=== PATIENT | female | born 1980 | race Caucasian/White ===

== ENCOUNTER 2020-07-26 13:36 | Emergency (ER) | payer BC, SELFPAY ==
[2020-07-26 13:44] VITALS: BP 124/81; PULSE 84; RESP 16; TEMP 36.6; O2SAT 100
--- NOTE | 2020-07-26 13:45 | ED.URI ---
HPI - URI/Sore Throat General Chief Complaint: Upper Respiratory Infection Stated Complaint: sinus congestion Source: patient and RN notes reviewed Limitations: no limitations History of Present Illness HPI Narrative: The patient , rare smoker/rare drinker, presents with sinus headache and congestion. Patient states she has been seen in the far past by ENT for sinusitis and had a DNS repair, as well as polyp removal. She now has a least a 1 week history of frontal facial pain and headache, associated with congestion and postnasal drip--that she attributes to seasonal allergies. She had 2 prior negative Covid test; no fever, cough, loss of taste/smell, CP, wheezing, S OB. Symptoms are mild to moderate and better sleeping upright. Related Data Home Medications Medication Instructions Recorded Confirmed atorvastatin 20 mg PO DAILY 07/26/20 07/26/20 Allergies Allergy/AdvReac Type Severity Reaction Status Date / Time No Known Allergies Allergy Mild Verified 07/26/20 13:42 Review of Systems Review of Systems: Narrative: General/Constitutional: No weight loss,fever Eyes: N0: Redness,discharge Ears/Nose/Throat: No: Epistaxis,ear discharge Respiratory: Denies: Hemoptysis Gastrointestinal: No Vomiting, Bleeding-rectal Skin: No Lumps, eruption Neurologic: No Focal Weakness,Sz Hematologic: Denies: Petechiae/Purpura Psychiatric: No: Suicida ideationl All Other Systems: Reviewed and Negative PMFSH Comments At time of signature, agree with nursing past medical, surgical, social and family history. There is no relevant family history pertinent to the presenting complaint Exam Narrative: Exam Narrative: General Appearance: Well appearing, Well nourished EYE: PERRLA, Conjunctiva clear Ears: Auditory canal normal, TM normal Nose: Rhinorrhea, Mucousal erythema Mouth/Throat: MM moist, Uvula midline, Pharyngeal erythema Neck: Supple, No adenopathy Respiratory: No respiratory distress, Breath sounds equal, Clear to auscultation Cardiovascular: No JVD Musculoskeletal: Non tender, Normal strength Skin: Warm, Dry Neurological: A&O x3, CN II-XII intact Psychiatric: Normal mood, Normal affect Course Vital Signs Vital signs: Vital Signs Temperature 98 F 07/26/20 13:44 Pulse Rate 84 07/26/20 13:44 Respiratory Rate 16 07/26/20 13:44 Blood Pressure 124/81 07/26/20 13:44 Pulse Oximetry 100 07/26/20 13:44 Temperature 98 F 07/26/20 13:44 Pulse Rate 84 07/26/20 13:44 Respiratory Rate 16 07/26/20 13:44 Blood Pressure 124/81 07/26/20 13:44 Pulse Oximetry 100 07/26/20 13:44 Discharge Plan Discharge Clinical Impression: Sinus headache Patient Disposition: Home, Self-Care Condition: Stable Instructions: Antibiotic Form, Sinusitis (ED) Prescriptions: New cefdinir 300 mg capsule 300 mg PO Q12H Qty: 14 RF: 0 azelastine 137 mcg (0.1 %) aerosol,spray 137 mcg intranasal Q12H Qty: 30 RF: 0 montelukast [Singulair] 10 mg tablet 10 mg PO HS Qty: 20 RF: 2 tramadol 50 mg tablet 50 mg PO TID PRN (Reason: pain) Qty: 10 RF: 0 atorvastatin 20 mg tablet 20 mg PO HS Qty: 30 RF: 2 No Action atorvastatin 20 mg Tablet 20 mg PO DAILY RF: 0 Follow-up/Referrals: Dede Cool MD [Other]
== END 2020-07-26 14:40 | disposition home or self-care (01) ==
PROVIDERS: Emergency Provider Emergency Medicine
DX: R51.9 Headache, unspecified (principal); Z72.0 Tobacco use
CPT/HCPCS: 99213; G0463

== ENCOUNTER 2024-12-12 10:07 | Outpatient (CLI) | payer BC, SELFPAY ==
--- OUTSIDE RECORDS SUMMARY | 2024-12-12 10:17 | XMS_ITS | Clinical Summary ---
Author Organization [facility] Address [address] [place] [address] Phone Care Team Providers Care Fitness Professional Name Role Phone Dede Cool MD Primary Care Provider [phone] Allergies No known active allergies Medications cholecalcifero l, vitamin D3, (VITAMIN D3) 5,000 unitIndication s:Vitamin D deficiency Take 1 Tablet (5,000 Units) by mouth see administration instructions three times a week. 1 Tablet 1 7 Active amphetamine-de xtroamphetamin e (Adderall XR) 15 mg Extended Release 24 hour capsule Take 15 mg by mouth 2 times daily. 1 Active atorvastatin (LIPITOR) 40 mg tablet Take 40 mg by mouth daily. Active FLUoxetine (PROzac) 20 mg tablet Take 20 mg by mouth daily. Active Active Problems Problem Noted Date Diagnosed Date Family history of early CAD 06/27/2016 Overview (06/27/2016): Family History Problem Relation Age of Onset Heart Disease Father CABG at 37 Tobacco use 06/04/2016 rLTCS 2/14 07/08/2012 Vitamin D deficiency 09/21/2009 Familial hypercholesteremia 09/21/2009 ADILSON (generalized anxiety disorder) 09/21/2009 Resolved Problems Problem Noted Date Diagnosed Date Resolved Date Hyperlipidemia 09/21/2009 09/21/2009 Immunizations Immunization Administration Dates Next Due (ADACEL/BOOSTRIX)(10 YR UP) TDAP VACCINE, 0.5ML, IM 11/12/2007 Influenza Seasonal Unspecified Formulation IM ,03/25/2012 Influenza Vaccine Split 3+ Yrs IM 06/04/2016 Rho (D) IMMUNE GLOBULIN 1,500 UNIT(300 MCG) INJE CTION 07/09/2012 Family History Medical History Relation Name Comments Heart Disease Father CABG at 37 Hypertension Father Kidney Disease Father Stroke Father Healthy Mother Relation Name Status Comments Father Mother Alive Social History Tobacco Use Types Packs/Day Years Used Date Smoking Tobacco: Former Cigarettes Smokeless Tobacco: Never Comments:quit 5 months ago Alcohol Use Standard Drinks/Week Comments Yes 1 (1 standard drink = 0.6 oz pur e alcohol) Comments No Sex and Gender Information Value Date Recorded Sex Assigned at Not on file 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 Gender Identity Not on file Sexual Orientation Not on file Occupation Industry Job Start Date Job End Date Not on file Not on file Not on file Not on file Last Filed Vital Signs Vital Sign Reading Time Taken Comments Blood Pressure 144/97 12/26/2020 3:27 PM CDT Pulse 91 12/26/2020 3:27 PM CDT Temperature 36.7 C (98.1 F) 06/25/2016 3:39 PM FISHING ROD ASSEMBLER Respiratory Rate 16 06/25/2016 3:39 PM FISHING ROD ASSEMBLER Oxygen Saturation 98% 06/25/2016 3:39 PM FISHING ROD ASSEMBLER Inhaled Oxygen Concentration - - Weight 91.6 kg (202 lb) 12/05/2020 3:29 PM CDT Height 172.7 cm (5' 8) 12/26/2020 3:27 PM CDT Body Mass Index 30.71 12/05/2020 3:29 PM CDT Plan of Treatment Health Maintenance Due Date Last Done Comments HPV VACCINES (1 - 3-dose series) 1996 HEPATITIS B VACCINES (1 of 3 - 19+ 3-dose series) 2000 DTAP/TDAP/TD VACCINES (2 - T d or Tdap) 11/11/2017 11/12/2007 BREAST CANCER SCREENING 2021 PAP SMEAR 12/06/2023 12/05/2020, 03/25, 12/24/2011, Additional history exists Preventative Visit- Commercial 05/25/2024 12/05/2020 , 09/21/2009 INFLUENZA VACCINE (#1) 2024 7, 02/22/2013, 03/25/2012 CERVICAL CANCER SCREENING 12/05/2025 HPV/Cotest (21-29) 12/05/2025 12/05/2020 HPV/Cotest (30-65) 12/05/2025 12/05/2020 Procedures Procedure Name Priority Date/Time Associated Diagnosis Comments CERV/VAG CYTO SCREEN PAP W/HPV Routine 12/05/2020 4:27 PM CDT Encounter for gynecological examination without abnormal finding from Last 3 Months or Most Recently Relevant to Health Maintenance Results * CERV/VAG CYTO SCREEN PAP W/HPV (12/05/2020 4:27 PM CDT) CLINICAL INFORMATION [facility] Comment:Information not prov ided LAST MENSTRUAL PERIOD [facility] Comment:INFORMATION NOT PROV IDED PREV PAP: [facility] Comment:INFORMATION NOT PROV IDED PREV BX: [facility] Comment:INFORMATION NOT PROV IDED SOURCE [facility] Comment:Endocervix ADEQUACY: [facility] Comment: Satisfactory for evaluation. Endocervical/transformation zone component absent. Age and/or menstrual status not provided PAP INTERP [facility] Comment:Negative for intraep ithelial lesion or malignancy. COMMENT [facility] Comment: This Pap test has been evaluated with computer assisted technology. HEADER MACHINE OPERATOR: [facility] Comment: AIXA HERNANDEZ(ASCP) CT screening location: [place] [address] [place] [address] SEE NOTE [facility] Comment: EXPLANATORY NOTE: The Pap is a screening test for cervical cancer. It is not a diagnostic test and is subject to false negative and false positive results. It is most reliable when a satisfactory sample, regularly obtained, is submitted with relevant clinical findings and history, and when the Pap result is evaluated along with historic and current clinical information. HPV E6/E7 Not Detected Not Detected [facility] Comment: Methodology: Rail Gang Supervisor-Mediated Amplification This assay detects E6/E7 viral messenger RNA (mRNA) from 14 high-risk HPV types (16,18,31,33,35,39,45,51,52,56,58,59,66,68). The analytical performance characteristics of this assay have been determined by [facility]. The modifications have not been cleared or approved by the FDA. This assay has been validated pursuant to the CLIA regulations and is used for clinical purposes. For additional information, please refer to http://education.[employer]eenoh/faq/YWI141b8 (This link if provided for information/ educational purposes only.) [facility]formed [facility] [address] [address] Piyush Nunez D.O., MPH SL Genital SWAB OF ENDOCERVIX / Unknown 12/05/2020 4:27 PM CDT 12/05/2020 11:50 PM CDT us Garcia Montiel MD PATHOLOGY/CYTOLOGY ORD ERABLES Final Result [facility] [address] [place] [address] from Last 3 Months or Most Recently Relevant to Health Maintenance Insurance [facility] PREFERR[facility] Advance Directives For more information, please contact: [phone] * Full Code (Latest Code Status on File) Date Activated Date Inactivated Comments 07/08/2012 10:55 PM 07/12/2012 2:24 PM * Full Code Date Activated Date Inactivated Comments 07/08/2012 11:17 AM 07/08/2012 10:55 PM Care Teams Fitness Professional Relationship Specialty Start Date End Date Dede Cool MD [facility] - General 06/28/09
--- OUTSIDE RECORDS SUMMARY | 2024-12-12 10:17 | XMS_ITS | Encounter Summary ---
Author Organization [employer] Address [address] [place] [address] Care Team Providers Care Field Engineer Name Role Phone Dede Cool MD Primary Care Provider [phone] Encounter Details Date Type Department Care Team (Late st Contact Info) Description 05/19/2007 Emergency [facility] [place], Authorized P NO ADDRESS ON FILE Karen Chiang MD NO ADDRESS ON FILE Other Current Maternal Conditions Classifiable Elsewhere, Antepartum; Unspecified Chest Pain; Hypopotassemia; Family History of Ischemic Heart Disease; Personal History of Tobacco Use, Presenting Hazards to Health Social History Tobacco Use Types Packs/Day Years Used Date Smoking Tobacco: Never Assessed Comments Unknown Sex and Gender Information Value Date Recorded Sex Assigned at Not on file 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 Gender Identity Not on file Sexual Orientation Not on file documented as of this encounter Plan of Treatment Not on file documented as of this encounter Procedures Procedure Name Priority Date/Time Associated Diagnosis Comments TROPONIN (W/REFLEX CKMB/CK) Routine 05/19/2007 7:29 AM SENIOR ENGINEERING ASSOCIATE CBC WITH DIFFERENTIAL Routine 05/19/2007 7:29 AM SENIOR ENGINEERING ASSOCIATE CBC WITH DIFFERENTIAL Routine 05/19/2007 7:29 AM SENIOR ENGINEERING ASSOCIATE COMPREHENSIVE METABOLIC PANEL Routine 05/19/2007 7:29 AM SENIOR ENGINEERING ASSOCIATE documented in this encounter Results * CBC WITH DIFFERENTIAL (05/19/2007 7:29 AM SENIOR ENGINEERING ASSOCIATE) [facility] NEUTROPHILS 68 45 - 70 % INTERFAC E SYSTEM LYMPHOCYTES 24 16 - 45 % INTERFAC E SYSTEM MONOCYTES 6 3 - 13 % INTERFACE SYSTEM EOSINOPHILS 2 0 - 7 % INTERFAC E SYSTEM BASOPHILS 0 0 - 2 % INTERFACE SYSTEM NEUTROPHIL ABSOLUTE 6.52 1.90 - 7.00 K/uL INTERFACE SYSTEM LYMPHOCYTE ABSOLUTE 2.32 0.70 - 4.50 K/uL INTERFACE SYSTEM MONOCYTE ABSOLUTE 0.62 0.10 - 1.30 K/uL INTERFACE SYSTEM EOSINOPHIL ABSOLUTE 0.14 0.00 - 0.70 K/uL INTERFACE SYSTEM BASOPHILS ABSOLUTE 0.03 0.00 - 0.20 K/uL INTERFACE SYSTEM 05/19/2007 7:29 AM SENIOR ENGINEERING ASSOCIATE Karen Chiang MD HEMATOLOGY ORDERABLES Edited Performing Organization Address [facility] de Phone Number INTERFACE SYSTEM Refer to clinic/hospital department * (ABNORMAL) CBC WITH DIFFERENTIAL (05/19/2007 7:29 AM SENIOR ENGINEERING ASSOCIATE) [facility] WBC 9.6 4.0 - 9.8 K/uL INTERFACE SYSTEM RBC 3.75(L) 3.90 - 4.90 M/uL INTERFACE SYSTEM HEMOGLOBIN 11.4(L) 11.8 - 14.8 g/dL INTERFACE SYSTEM HEMATOCRIT 32.8(L) 35.5 - 44.0 % INTERFACE SYSTEM MCV 87.5 82.0 - 99.0 fL INTERFACE SYSTEM MCH 30.4 27.2 - 32.6 pg INTERFACE SYSTEM MCHC 34.8 31.5 - 35.5 % INTERFACE SYSTEM RDW 12.9 11.5 - 14.5 % INTERFACE SYSTEM RDW-STDEV 41.2 37.1 - 48.7 fL INTERFACE SYSTEM PLATELETS 164 140 - 350 K/uL INTERFACE SYSTEM MPV 9.3 9.3 - 12.4 fL INTERFACE SYSTEM 05/19/2007 7:29 AM SENIOR ENGINEERING ASSOCIATE Karen Chiang MD HEMATOLOGY ORDERABLES Edited Performing Organization Address [facility] Co de Phone Number INTERFACE SYSTEM Refer to clinic/hospital department * (ABNORMAL) COMPREHENSIVE METABOLIC PANEL (05/19/2007 7:29 AM SENIOR ENGINEERING ASSOCIATE) GLUCOSE 83 65 - 99 mg/dL INTERFACE SYSTEM CREATININE 0.54 0.51 - 0.95 mg/dL INTERFACE SYSTEM CALCIUM 8.5 8.4 - 10.2 mg/dL INTERFACE SYSTEM ALKALINE PHOSPHATASE 53 35 - 104 U/L INTERFACE SYSTEM AST 15 12 - 32 U/L INTERFACE SYSTEM ALT 15 0 - 31 U/L INTERFACE SYSTEM TOTAL PROTEIN 5.9(L) 6.3 - 8.6 g/dL INTERFACE SYSTEM ALBUMIN 3.6 3.4 - 4.8 g/dL INTERFACE SYSTEM BILIRUBIN TOTAL 0.4 0.2 - 1.0 mg/dL INTERFACE SYSTEM BUN 8 6 - 20 mg/dL INTERFACE SYSTEM SODIUM 133(L) 135 - 145 mmol/L INTERFACE SYSTEM POTASSIUM 3.1(L) 3.5 - 4.9 mmol/L INTERFACE SYSTEM CHLORIDE 101 96 - 108 mmol/L INTERFACE SYSTEM CO2 23 22 - 30 mmol/L INTERFACE SYSTEM GFR, >60 >=60 mL/min/1. 7 sq meter INTERFACE SYSTEM GFR >60 >=60 mL/min/1. 7 sq meter INTERFACE SYSTEM Comment: Estimated GFR rate interpretative information for both Americans and non- Americans is available on the [facility] Intranet at: [email or web address] Select: Lab Policies and Procedures Select: Reference Ranges - GFR 05/19/2007 7:29 AM SENIOR ENGINEERING ASSOCIATE Karen Chiang MD CHEMISTRY ORDERABLES Edited Performing Organization Address [facility] Phone Number INTERFACE SYSTEM Refer to clinic/hospital department * TROPONIN (W/REFLEX CKMB/CK) (05/19/2007 7:29 AM SENIOR ENGINEERING ASSOCIATE) TROPONIN T <0.01 <=0.03 ng/mL INTERFACE SYSTEM TROPONIN T INTERP Negative INTERFACE SYSTEM 05/19/2007 7:29 AM SENIOR ENGINEERING ASSOCIATE Karen Chiang MD CHEMISTRY ORDERABLES Edited Performing Organization Address [facility] Co de Phone Number INTERFACE SYSTEM Refer to clinic/hospital department documented in this encounter Visit Diagnoses Diagnosis Other current maternal conditions classifiable elsewhere, antepartum Chest pain, unspecified Hypopotassemia Family history of ischemic heart disease Personal history of tobacco use, presenting hazards to health documented in this encounter Care Teams Field Engineer Relationship Specialty Start Date End Date Dede Cool MD PCP - General 06/28/09 documented as of this encounter
--- OUTSIDE RECORDS SUMMARY | 2024-12-12 10:17 | XMS_ITS | Encounter Summary ---
Author Organization [email or web address] Address 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 Gender Identity Not on file Sexual Orientation Not on file documented as of this encounter Plan of Treatment Not on file documented as of this encounter Procedures Procedure Name Priority Date/Time Associated Diagnosis Comments RH IMMUNE GLOBULIN EVALUATION Routine 11/11/2007 4:18 AM CDT CBC WITH DIFFERENTIAL Stat 11/10/2007 9:05 AM CDT TYPE AND SCREEN Routine 11/10/2007 9:05 AM CDT documented in this encounter Results * RH IMMUNE GLOBULIN EVALUATION (11/11/2007 4:18 AM CDT) ABO/RH TYPE O Negative [facility] CORD BLOOD TYPE O Positive [facility] RHIG ELIGIBILITY Pt is RhIg Candidate [facility] HISTORY CHECK History Checked [facility] SPECIMEN LIFE 3 days from drawdate [facility] SCREEN Negative [facility] RHIG STATUS Issued [facility] BLOOD BANK PRODUCT Rh Immune Globulin [facility] RHIG LOT NUMBER [id number] [facility] Blood specimen (specimen) 11/11/2007 4:18 AM CDT More Christie MD BLOOD BANK ORDERABLES Edit ed Performing Organization Address City/[facility]/ZIP Co de Phone Number [facility] CLIA# [id number] [address] [place] [address] * TYPE AND SCREEN (11/10/2007 9:05 AM CDT) SPECIMEN LIFE 3 days from drawdate [facility] ABO/RH TYPE O Negative [facility] HISTORY CHECK No Historical ABO/Rh [facility] ANTIBODY SCREEN Negative [facility] Blood specimen (specimen) 11/10/2007 9:05 AM CDT More Christie MD BLOOD BANK ORDERABLES Edit ed [facility] CLIA# [id number] [address] [place] [address] * (ABNORMAL) CBC WITH DIFFERENTIAL (11/10/2007 9:05 AM CDT) MCV 87.7 82.0 - 99.0 fL [facility] MPV 9.8 9.3 - 12.4 fL [facility] HEMOGLOBIN 11.3(L) 11.8 - 14.8 g/dL [facility] RDW 14.0 11.5 - 14.5 % [facility] RDW-STDEV 44.5 37.1 - 48.7 fL [facility] WBC 12.9(H) 4.0 - 9.8 K/uL [facility] MCH 29.6 27.2 - 32.6 pg [facility] HEMATOCRIT 33.5(L) 35.5 - 44.0 % [facility] RBC 3.82(L) 3.90 - 4.90 M/uL [facility] PLATELETS 159 140 - 350 K/uL [facility] MCHC 33.7 31.5 - 35.5 % [facility] EOSINOPHIL ABSOLUTE 0.04 0.00 - 0.70 K/uL [facility] LYMPHOCYTES 13(L) 16 - 45 % [facility] NEUTROPHIL ABSOLUTE 10.34(H) 1.90 - 7.00 K/uL [facility] MONOCYTES 6 3 - 13 % [facility] BASOPHILS ABSOLUTE 0.02 0.00 - 0.20 K/uL [facility] LYMPHOCYTE ABSOLUTE 1.70 0.70 - 4.50 K/uL [facility] EOSINOPHILS 0 0 - 7 % [facility] MONOCYTE ABSOLUTE 0.77 0.10 - 1.30 K/uL [facility] NEUTROPHILS 80(H) 45 - 70 % [facility] BASOPHILS 0 0 - 2 % [facility] Blood specimen (specimen) 11/10/2007 9:05 AM CDT 11/10/2007 9:35 AM CDT us More Christie MD HEMATOLOGY ORDERABLES Edit ed INTERFACE SYSTEM Refer to clinic/hospital department [facility] CLIA# [id number] [address] [place] [address] documented in this encounter Visit Diagnoses Diagnosis Normal delivery documented in this encounter Care Teams Photo Stylist Relationship Specialty Start Date End Date Dede Cool MD PCP - General 06/28/09 documented as of this encounter
--- OUTSIDE RECORDS SUMMARY | 2024-12-12 10:17 | XMS_ITS | Encounter Summary ---
Author Organization [employer] Address [address] [place] [address] Care Team Providers Care Bakery Clerk Name Role Phone Dede Cool MD Primary Care Provider [phone] Encounter Details Date Type Department Care Team (Late st Contact Info) Description 09/12/2007 Inpatient Historical HIS OB PREADMIT More Christie MD [address] [place] [address] Garcia Montiel MD [address] [facility] [address] [place] [address] Social History Tobacco Use Types Packs/Day Years Used Date Smoking Tobacco: Never Assessed Comments Unknown Sex and Gender Information Value Date Recorded Sex Assigned at Not on file 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 Gender Identity Not on file Sexual Orientation Not on file documented as of this encounter Plan of Treatment Not on file documented as of this encounter Procedures Procedure Name Priority Date/Time Associated Diagnosis Comments CBC WITH DIFFERENTIAL Stat 09/12/2007 4:58 PM CDT URINALYSIS WITH MICROSCOPIC Stat 09/12/2007 4:53 PM CDT documented in this encounter Results * (ABNORMAL) CBC WITH DIFFERENTIAL (09/12/2007 4:58 PM CDT) WBC 11.4(H) 4.0 - 9.8 K/uL [facility] MCH 29.6 27.2 - 32.6 pg [facility] MPV 9.2(L) 9.3 - 12.4 fL [facility] HEMATOCRIT 32.8(L) 35.5 - 44.0 % [facility] RDW-STDEV 43.3 37.1 - 48.7 fL [facility] RBC 3.75(L) 3.90 - 4.90 M/uL [facility] MCHC 33.8 31.5 - 35.5 % [facility] MCV 87.5 82.0 - 99.0 fL [facility] PLATELETS 195 140 - 350 K/uL [facility] HEMOGLOBIN 11.1(L) 11.8 - 14.8 g/dL [facility] RDW 13.6 11.5 - 14.5 % [facility] LYMPHOCYTES 20 16 - 45 % [facility] LYMPHOCYTE ABSOLUTE 2.22 0.70 - 4.50 K/uL [facility] BASOPHILS 0 0 - 2 % [facility] BASOPHILS ABSOLUTE 0.01 0.00 - 0.20 K/uL [facility] MONOCYTES 5 3 - 13 % [facility] MONOCYTE ABSOLUTE 0.55 0.10 - 1.30 K/uL [facility] NEUTROPHILS 75(H) 45 - 70 % [facility] NEUTROPHIL ABSOLUTE 8.54(H) 1.90 - 7.00 K/uL [facility] EOSINOPHILS 1 0 - 7 % [facility] EOSINOPHIL ABSOLUTE 0.09 0.00 - 0.70 K/uL [facility] Blood specimen (specimen) 09/12/2007 4:58 PM CDT 09/12/2007 5:03 PM CDT More Christie MD HEMATOLOGY ORDERABLES Edit ed INTERFACE SYSTEM Refer to clinic/hospital department [facility] [address] [place] [address] * (ABNORMAL) URINALYSIS WITH MICROSCOPIC (09/12/2007 4:53 PM CDT) PH UA 6.5 5.0 - 8.0 [facility] KETONES UA Negative Negative [facility] WBC UA 1 0 - 5 /HPF [facility] CLARITY UA Slt. Cloudy(A) Clear [facility] PROTEIN UA Trace(A) Negative [facility] EPITHELIAL CELLS, URINE 5-10 /HPF [facility] BILIRUBIN UA Negative Negative [facility] LEUKOCYTE ESTERASE UA Negative Negative [facility] RBC UA 1 0 - 4 /HPF [facility] SPECIFIC GRAVITY UA 1.020 1.001 - 1.035 [facility] BLOOD UA Negative Negative [facility] GLUCOSE UA Negative Negative [facility] COLOR UA Yellow [facility] NITRITE UA Negative Negative [facility] UROBILINOGEN UA <1 <=1 mg/dL [facility] BACTERIA UA 1+(A) None Seen /HPF [facility] 09/12/2007 4:53 PM CDT 09/12/2007 5:05 PM CDT More Christie MD URINE ORDERABLES Final Res ult [facility] [address] [place] [address] documented in this encounter Visit Diagnoses Not on filedocumented in this encounter Care Teams Bakery Clerk Relationship Specialty Start Date End Date Deed Cool MD PCP - General 06/28/09 documented as of this encounter
== END 2024-12-12 10:08 | disposition home or self-care (01) ==
LOC: ANHGOSHLAB 10:08
PROVIDERS: PCP Nurse Practitioner Family; Visit Provider Nurse Practitioner Family
DX: G47.9 Sleep disorder, unspecified (principal); F41.9 Anxiety disorder, unspecified; E78.5 Hyperlipidemia, unspecified; E55.9 Vitamin D deficiency, unspecified
CPT/HCPCS: 36415

== ENCOUNTER 2025-03-09 09:38 | Outpatient (CLI) | payer BC, SELFPAY ==
--- OUTSIDE RECORDS SUMMARY | 2025-03-09 10:39 | XMS_ITS | Encounter Summary ---
Author Organization [employer] Address 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 OPERATOR Gender Identity Not on file Sexual Orientation Not on file documented as of this encounter Plan of Treatment Not on file documented as of this encounter Procedures Procedure Name Priority Date/Time Associated Diagnosis Comments TROPONIN (W/REFLEX CKMB/CK) Routine 05/19/2007 7:29 AM GLUER MACHINE SETUP OPERATOR CBC WITH DIFFERENTIAL Routine 05/19/2007 7:29 AM GLUER MACHINE SETUP OPERATOR CBC WITH DIFFERENTIAL Routine 05/19/2007 7:29 AM GLUER MACHINE SETUP OPERATOR COMPREHENSIVE METABOLIC PANEL Routine 05/19/2007 7:29 AM GLUER MACHINE SETUP OPERATOR documented in this encounter Results * CBC WITH DIFFERENTIAL (05/19/2007 7:29 AM GLUER MACHINE SETUP OPERATOR) [facility] NEUTROPHILS 68 45 - 70 % INTERFAC [...] 0.20 K/uL INTERFACE SYSTEM 05/19/2007 7:29 AM GLUER MACHINE SETUP OPERATOR Karen Chiang MD HEMATOLOGY ORDERABLES Edited Performing Organization Address [facility] de Phone Number INTERFACE SYSTEM Refer to clinic/hospital department * (ABNORMAL) CBC WITH DIFFERENTIAL (05/19/2007 7:29 AM GLUER MACHINE SETUP OPERATOR) [facility] WBC 9.6 4.0 - 9.8 K/uL INTERFACE [...] 12.4 fL INTERFACE SYSTEM 05/19/2007 7:29 AM GLUER MACHINE SETUP OPERATOR Karen Chiang MD HEMATOLOGY ORDERABLES Edited Performing Organization Address [facility] Co de Phone Number INTERFACE SYSTEM Refer to clinic/hospital department * (ABNORMAL) COMPREHENSIVE METABOLIC PANEL (05/19/2007 7:29 AM GLUER MACHINE SETUP OPERATOR) GLUCOSE 83 65 - 99 mg/dL INTERFACE [...] and non- Americans is available on the [facility] Intranet at: [email or web address] Select: Lab Policies and Procedures Select: Reference Ranges - GFR 05/19/2007 7:29 AM GLUER MACHINE SETUP OPERATOR Karen Chiang MD CHEMISTRY ORDERABLES Edited Performing Organization Address [facility] Phone Number INTERFACE SYSTEM Refer to clinic/hospital department * TROPONIN (W/REFLEX CKMB/CK) (05/19/2007 7:29 AM GLUER MACHINE SETUP OPERATOR) TROPONIN T <0.01 <=0.03 ng/mL INTERFACE SYSTEM TROPONIN T INTERP Negative INTERFACE SYSTEM 05/19/2007 7:29 AM GLUER MACHINE SETUP OPERATOR Karen Chiang MD CHEMISTRY ORDERABLES Edited Performing Organization Address [facility] Co de Phone Number INTERFACE SYSTEM Refer to clinic/hospital department documented in this encounter Visit Diagnoses Diagnosis Other current maternal conditions classifiable elsewhere, antepartum Chest pain, unspecified Hypopotassemia Family history of ischemic heart disease Personal history of tobacco use, presenting hazards to health documented in this encounter Care Teams Icing Maker Relationship Specialty Start Date End Date Dede Cool MD PCP - General 06/28/09 documented as of this encounter
--- OUTSIDE RECORDS SUMMARY | 2025-03-09 10:39 | XMS_ITS | Encounter Summary ---
Author Organization [employer] Address [address] [place] [address] Care Team Providers Care Duralumin Mechanic Name Role Phone Dede Cool MD Primary Care Provider [phone] Encounter Details Date Type Department Care Team (Late st Contact Info) Description 09/12/2007 Inpatient Historical HIS OB PREADMIT More Christie MD [address] [place] [address] Garcia Montiel MD [address] [facility] [address] [place] [address] Social History Tobacco Use Types Packs/Day Years Used Date Smoking Tobacco: Never Assessed Comments Unknown Sex and Gender Information Value Date Recorded Sex Assigned at Not on file Legal Sex Female 4:29 AM PAINT MIXER MACHINE Gender Identity Not on file Sexual Orientation [...] CDT) WBC 11.4(H) 4.0 - 9.8 K/uL [facility] MCH 29.6 27.2 - 32.6 pg [facility] MPV 9.2(L) 9.3 - 12.4 fL [facility] HEMATOCRIT 32.8(L) 35.5 - 44.0 % [facility] RDW-STDEV 43.3 37.1 - 48.7 fL [facility] RBC 3.75(L) 3.90 - 4.90 M/uL [facility] MCHC 33.8 31.5 - 35.5 % [facility] MCV 87.5 82.0 - 99.0 fL [facility] PLATELETS 195 140 - 350 K/uL [facility] HEMOGLOBIN 11.1(L) 11.8 - 14.8 g/dL [facility] RDW 13.6 11.5 - 14.5 % [facility] LYMPHOCYTES 20 16 - 45 % [facility] LYMPHOCYTE ABSOLUTE 2.22 0.70 - 4.50 K/uL [facility] BASOPHILS 0 0 - 2 % [facility] BASOPHILS ABSOLUTE 0.01 0.00 - 0.20 K/uL [facility] MONOCYTES 5 3 - 13 % [facility] MONOCYTE ABSOLUTE 0.55 0.10 - 1.30 K/uL [facility] NEUTROPHILS 75(H) 45 - 70 % [facility] NEUTROPHIL ABSOLUTE 8.54(H) 1.90 - 7.00 K/uL [facility] EOSINOPHILS 1 0 - 7 % [facility] EOSINOPHIL ABSOLUTE 0.09 0.00 - 0.70 K/uL [facility] Blood specimen (specimen) 09/12/2007 4:58 PM CDT 09/12/2007 5:03 PM CDT More Christie MD HEMATOLOGY ORDERABLES Edit ed INTERFACE SYSTEM Refer to clinic/hospital department [facility] [address] [place] [address] * (ABNORMAL) URINALYSIS WITH MICROSCOPIC (09/12/2007 4:53 PM CDT) PH UA 6.5 5.0 - 8.0 [facility] KETONES UA Negative Negative [facility] WBC UA 1 0 - 5 /HPF [facility] CLARITY UA Slt. Cloudy(A) Clear [facility] PROTEIN UA Trace(A) Negative [facility] EPITHELIAL CELLS, URINE 5-10 /HPF [facility] BILIRUBIN UA Negative Negative [facility] LEUKOCYTE ESTERASE UA Negative Negative [facility] RBC UA 1 0 - 4 /HPF [facility] SPECIFIC GRAVITY UA 1.020 1.001 - 1.035 [facility] BLOOD UA Negative Negative [facility] GLUCOSE UA Negative Negative [facility] COLOR UA Yellow [facility] NITRITE UA Negative Negative [facility] UROBILINOGEN UA <1 <=1 mg/dL [facility] BACTERIA UA 1+(A) None Seen /HPF [facility] 09/12/2007 4:53 PM CDT 09/12/2007 5:05 PM CDT More Christie MD URINE ORDERABLES Final Res ult [facility] [address] [place] [address] documented in this encounter Visit Diagnoses Not on filedocumented in this encounter Care Teams Duralumin Mechanic Relationship Specialty Start Date End Date Dede Cool MD PCP - General 06/28/09 documented as of this encounter
--- OUTSIDE RECORDS SUMMARY | 2025-03-09 10:39 | XMS_ITS | Encounter Summary ---
Author Organization [employer] Address 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 Gender Identity Not on file Sexual Orientation [...] 4:18 AM CDT) ABO/RH TYPE O Negative [facility] CORD BLOOD TYPE O Positive [facility] RHIG ELIGIBILITY Pt is RhIg Candidate [facility] HISTORY CHECK History Checked [facility] SPECIMEN LIFE 3 days from drawdate [facility] SCREEN Negative [facility] RHIG STATUS Issued [facility] BLOOD BANK PRODUCT Rh Immune Globulin [facility] RHIG LOT NUMBER [id number] [facility] Blood specimen (specimen) 11/11/2007 4:18 AM CDT More Christie MD BLOOD BANK ORDERABLES Edit ed Performing Organization Address City/[facility]/ZIP Co de Phone Number [facility] CLIA# [id number] [address] [place] [address] * TYPE AND SCREEN (11/10/2007 9:05 AM CDT) SPECIMEN LIFE 3 days from drawdate [facility] ABO/RH TYPE O Negative [facility] HISTORY CHECK No Historical ABO/Rh [facility] ANTIBODY SCREEN Negative [facility] Blood specimen (specimen) 11/10/2007 9:05 AM CDT More Christie MD BLOOD BANK ORDERABLES Edit ed [facility] CLIA# [id number] [address] [place] [address] * (ABNORMAL) CBC WITH DIFFERENTIAL (11/10/2007 9:05 AM CDT) MCV 87.7 82.0 - 99.0 fL [facility] MPV 9.8 9.3 - 12.4 fL [facility] HEMOGLOBIN 11.3(L) 11.8 - 14.8 g/dL [facility] RDW 14.0 11.5 - 14.5 % [facility] RDW-STDEV 44.5 37.1 - 48.7 fL [facility] WBC 12.9(H) 4.0 - 9.8 K/uL [facility] MCH 29.6 27.2 - 32.6 pg [facility] HEMATOCRIT 33.5(L) 35.5 - 44.0 % [facility] RBC 3.82(L) 3.90 - 4.90 M/uL [facility] PLATELETS 159 140 - 350 K/uL [facility] MCHC 33.7 31.5 - 35.5 % [facility] EOSINOPHIL ABSOLUTE 0.04 0.00 - 0.70 K/uL [facility] LYMPHOCYTES 13(L) 16 - 45 % [facility] NEUTROPHIL ABSOLUTE 10.34(H) 1.90 - 7.00 K/uL [facility] MONOCYTES 6 3 - 13 % [facility] BASOPHILS ABSOLUTE 0.02 0.00 - 0.20 K/uL [facility] LYMPHOCYTE ABSOLUTE 1.70 0.70 - 4.50 K/uL [facility] EOSINOPHILS 0 0 - 7 % [facility] MONOCYTE ABSOLUTE 0.77 0.10 - 1.30 K/uL [facility] NEUTROPHILS 80(H) 45 - 70 % [facility] BASOPHILS 0 0 - 2 % [facility] Blood specimen (specimen) 11/10/2007 9:05 AM CDT 11/10/2007 9:35 AM CDT us More Christie MD HEMATOLOGY ORDERABLES Edit ed INTERFACE SYSTEM Refer to clinic/hospital department [facility] CLIA# [id number] [address] [place] [address] documented in this encounter Visit Diagnoses Diagnosis Normal delivery documented in this encounter Care Teams Academic Support Director Relationship Specialty Start Date End Date Dede Cool MD PCP - General 06/28/09 documented as of this encounter
--- OUTSIDE RECORDS SUMMARY | 2025-03-09 10:39 | XMS_ITS | Clinical Summary ---
Author Organization [facility] Address [address] [place] [address] Phone Care Team Providers Care Facility Attendant Name Role Phone Dede Cool MD Primary Care Provider [phone] Allergies No known active allergies Medications cholecalcifero [...] on file Legal Sex Female 4:29 AM GRAVEDIGGER Gender Identity Not on file Sexual Orientation Not on file Occupation Industry Job Start Date Job End Date Not on file Not on file Not on file Not on file Last Filed Vital Signs Vital Sign Reading Time Taken Comments Blood Pressure 144/97 12/26/2020 3:27 PM CDT Pulse 91 12/26/2020 3:27 PM CDT Temperature 36.7 C (98.1 F) 06/25/2016 3:39 PM GRAVEDIGGER Respiratory Rate 16 06/25/2016 3:39 PM GRAVEDIGGER Oxygen Saturation 98% 06/25/2016 3:39 PM GRAVEDIGGER Inhaled Oxygen Concentration - - Weight 91.6 kg (202 lb) 12/05/2020 3:29 PM CDT Height 172.7 cm (5' 8) 12/26/2020 3:27 PM CDT Body Mass Index 30.71 12/05/2020 3:29 PM CDT Plan of Treatment Health Maintenance Due Date Last Done Comments HEPATITIS B VACCINES (1 of 3 - 19+ 3-dose series) 2000 HPV VACCINES (1 - 3-dose SCD M series) 2008 DTAP/TDAP/TD VACCINES (2 - T d or [...] W/HPV (12/05/2020 4:27 PM CDT) CLINICAL INFORMATION [facility] Comment:Information not prov ided LAST MENSTRUAL PERIOD [facility] Comment:INFORMATION NOT PROV IDED PREV PAP: [facility] Comment:INFORMATION NOT PROV IDED PREV BX: [facility] Comment:INFORMATION NOT PROV IDED SOURCE [facility] Comment:Endocervix ADEQUACY: [facility] Comment: Satisfactory for evaluation. Endocervical/transformation zone component absent. Age and/or menstrual status not provided PAP INTERP [facility] Comment:Negative for intraep ithelial lesion or malignancy. COMMENT [facility] Comment: This Pap test has been evaluated with computer assisted technology. COMMUNITY OUTREACH ADVOCATE: [facility] Comment: AIXA HERNANDEZ(ASCP) CT screening location: [place] [address] [place] [address] SEE NOTE [facility] Comment: EXPLANATORY NOTE: The Pap is a [...] information. HPV E6/E7 Not Detected Not Detected [facility] Comment: Methodology: Gerentological Physiotherapist-Mediated Amplification This assay detects E6/E7 viral messenger RNA (mRNA) from 14 high-risk HPV types (16,18,31,33,35,39,45,51,52,56,58,59,66,68). The analytical performance characteristics of this assay have been determined by [employer]. The modifications have not been cleared or approved by the FDA. This assay has been validated pursuant to the CLIA regulations and is used for clinical purposes. For additional information, please refer to http://[email or web address].[email or web address]/[email or web address] (This link if provided for information/ educational purposes only.) Test Performed at: [facility] [address] [address] Piyush Nunez D.O., MPH SL [facility] END[facility]ERVIX / Unknown 12/05/2020 4:27 PM CDT 12/05/2020 11:50 PM CDT us Garcia Montiel MD PATHOLOGY/CYTOLOGY ORD ERABLES Final Result [facility] [address] [place] [address] from Last 3 Months or Most Recently Relevant to Health Maintenance Insurance [facility] PREFERRED Advance Directives For more information, please contact: [phone] * Full Code (Latest Code Status on File) Date Activated Date Inactivated Comments 07/08/2012 10:55 PM 07/12/2012 2:24 PM * Full Code Date Activated Date Inactivated Comments 07/08/2012 11:17 AM 07/08/2012 10:55 PM Care Teams Facility Attendant Relationship Specialty Start Date End Date Dede Cool MD [facility] - General 06/28/09
--- OUTSIDE RECORDS SUMMARY | 2025-03-09 10:39 | XMS_ITS | Patient Health Record ---
Author Organization [facility] [employer] water systems [facility] Address [facility] [facility] [address] [place] [address] Care Team Providers Care Instructional Technology Facilitator Name Role Phone Mary Connors Unavailable [phone] Reason For Referral No Information Medications Medication SIG (Take, Route, Frequency, Duration) Notes Start Date End Date Status hydrOXYzine HCl 10 MG Tablet Oral 10/30/2022 Active Amphetamine-Dextroamphetami ne 15 MG Tablet Oral 10/30/2022 Active FLUoxetine HCl 20 MG Capsule Oral 10/30/2022 Active FLUoxetine HCl 10 MG Capsule Oral 10/30/2022 Active Mirtazapine 30 MG Tablet Oral 10/30/2022 Active Social History Social History Additional Details Category Social Info Options Details Migrated Social History Migrated Social History Alcohol Intake: Occasional 10/30/2022,Tobacco Years: Former smoker 10/30/2022 Plan Of Treatment No Information Insurance Providers Payer Name Payer Address Payer Phone Subscriber Number Group Number Insured Name Patient Relationship to Insured Coverage Start Date Coverage End Date [facility] [address] [place] [address] [id number] NIKHIL ARZATE Self - patient is the insured
--- NOTE | 2025-05-01 13:54 | WPDHOMESLEEP ---
Sleep Study - Home Unattended Date of Study: 03/09/25 Ordering Provider: Teresa Connolly APRN Interpreting Provider: Karie Juan DO Home Sleep Study Type: Watch PAT Height: 1.73 m Weight: 88.451 kg Body Mass Index: 29.6 Neck Circumference (inches): 15 Berger: 15 Reason for Sleep Study Excessive daytime sleepiness Sleep History The patient is a 45 year old female that had a home sleep study ordered by her PCP for evaluation of sleep apnea. The patient did not complete her sleep history questionnaire. [facility] Surgical History Surgical History H/O sinus surgery 2009 Social History Social History Smoking status: Never smoker Tobacco type: cigarettes Alcohol intake: current Drinks per week: 4 Substance use: never Medications Home Medications ?Medication ?Instructions ?Recorded ?Confirmed ?Type alprazolam 0.25 mg tablet 0.25 mg PO BID PRN anxiety #20 tabs 12/12/24 12/12/24 Rx fluoxetine 40 mg capsule mg PO DAILY 12/12/24 12/12/24 History omeprazole 20 mg capsule,delayed 20 mg PO DAILY #90 caps 12/12/24 12/12/24 Rx release atorvastatin 40 mg tablet (Lipitor) 40 mg PO DAILY #90 tabs 12/16/24 Rx Sleep Procedure The sleep study was completed using WatchPAT a technically adequate device with seven channels: peripheral arterial tone, actigraphy, body position, snore, respiratory movement, pulse oximetry, sleep staging, and heart rate. Prior to using the device, the patient received verbal and written instructions for its application and was provided with the help desk phone number for additional telephonic instruction with 24-hour availability of qualified personnel to answer questions. The study was scored using CMS guidelines. Sleep Architecture The total recording time is 7 hrs, 57 min. The total sleep time is 7 hrs, 13 min. Sleep latency is 23 minutes. REM latency is 74 minutes. The patient had 6 episodes of waking. Sleep architecture shows 29.5% deep sleep, 32.7% light sleep, and (as % Total Sleep Time) showed NREM (Light 32.7%; Deep 29.5%), and a 37.7% stage REM. The patient spent 26.5% of total sleep time in the supine position. Sleep efficiency was 90.78. Respiratory Analysis The overall AHI (pAHI 4%:) is 3.1. The overall AHI (pAHI 3%:) is 7.4. The central AHI is 0.6. The AHI was 5.4 in NREM and 10.7 in REM sleep. The AHI was 12.1 in Supine and 5.7 in Non-supine sleep. Percent of Jona Davis respirations is 0.0. Oximetry Data The oxygen desaturation index (OLY 4%:) is 2.1. The mean saturation is 96%, and the lowest saturation is 91%. Time spent with saturation < 88% is 0.0 minutes. Snoring Profile Snoring average intensity is 46 dB. The patient snored above 45 decibels for 197.2 minutes, 45.5% of sleep time. Cardiac Profile The average pulse rate is 66 beats per minutes. The lowest pulse rate is 45 bpm. The highest pulse rate reported is 99 bpm. Atrial fibrillation was not detected. Premature beats occur <0.1 per minute. Assessment and Plan Assessment and Plan (1) SAM (obstructive sleep apnea): Code(s): G47.33 - Obstructive sleep apnea (adult) (pediatric) Status: Acute Assessment and Plan: Per AASM guidelines (pAHI 3%), the patient had an overall AHI of 7.4 with desaturation down to 91%. This is consistent with mild sleep apnea. Due to the patient's anxiety, she qualifies for treatment. I recommend that the patient be prescribed AutoPAP 5-15 cm H2O, CPAP mask/filters/tubing and heated humidity. A mandibular advancement device is also an acceptable treatment option. This should be used with all episodes of sleep.? Compliance should be reviewed within 31-90 days of starting therapy for usage greater than 4 hours per night greater than 70% of the nights. The patient should be asked about symptoms such as?excessive daytime sleepiness, quality of sleep, decreased nocturia, increased?mental functioning such as memory, mood, and concentration. Per CMS guidelines (pAHI 4%), the patient had an overall AHI of 3.1 with desaturation down to 91%. This is not consistent with sleep-disordered breathing. If the patient's insurance company only recognizes CMS guidelines (pAHI 4%), she does not qualify for treatment. I would then recommend that the patient have a split study with the use of a hypnotic to ensure we obtain enough sleep data. Data The data obtained during this sleep study is adequate for interpretation. Certification This sleep study has been reviewed by a board certified sleep medicine physician.
== END 2025-04-11 12:53 | disposition home or self-care (01) ==
PROVIDERS: PCP Nurse Practitioner Family; Visit Provider Nurse Practitioner Family
DX: G47.9 Sleep disorder, unspecified (principal)
CPT/HCPCS: 95800